=== PATIENT | male | born 1950 ===

== ENCOUNTER 2016-10-19 07:07 | Day surgery (SDC) | payer OTHER ==
[2016-10-18 08:11] VITALS: BMI 31.7
[2016-10-19 08:30] LABS: INR 1.1
[2016-10-19] MEDS ORDERED: Propofol 10 mg/ml Inj (20 ML) ONE (09:22)
[2016-10-19] MEDS ORDERED: Lactated Ringer's 1,000 ML IV ONE (09:25)
[2016-10-19] MEDS ORDERED: cefTRIAXone IV 1 gm in Dextros 50 ML IVPB ONE (09:26)
[2016-10-19] MEDS ORDERED: Lidocaine 2% Jelly (Uro-Jet) ONE (09:27)
[2016-10-19] MEDS ORDERED: Gentamicin 160 MG in Sodium Chloride 0.9% 100 ML IVPB ONE (09:30)
[2016-10-19] MEDS ORDERED: HYDROmorphone 0.5 mg/0.5 ml ISec IVP PRN (09:39)
--- NOTE | 2016-10-19 10:31 | OP ---
PROCEDURE DATE: 10/19/2016 PREOPERATIVE DIAGNOSIS: Elevated prostate-specific antigen of 30.1. POSTOPERATIVE DIAGNOSIS: Elevated prostate-specific antigen of 30.1. PROCEDURE: Transrectal ultrasound diagnostic, transrectal ultrasound guidance, and prostatic biopsy. SURGEON: Saad Cole MD. OPERATIVE DICTATION: The patient was told, and his daughter who was with him in the preoperative are a, who has interpreted that he needs to take it easy for 2 days after the procedure, he needs to be s ure he has a followup appointment within 1 week, and in the event of postoperative fever or chills, t o call my office immediately, and if there is no immediate response, to go right to the Emergency [facility]. The patient was brought to the operating room. One gram of Rocephin and 160 mg of gentamicin were gi harris as antibiotics intravenously. He was prepped and draped in the usual fashion. The rectum was fi rst cleansed with Betadine. We now introduced the transducer of the ultrasound machine. Multiple ar eas of calcification were seen. Total prostatic volume was 39.9 cm3. We now turned our attention towards prostatic biopsies. The prostate was divided into 6 sextants, an d 2 biopsies per sextant were obtained and sent to pathology. We then maintained pressure for 5 kelsey junie afterwards with the transducer to promote hemostasis. Upon removal, there was no significant ble eding noted. The patient tolerated the procedure well. Saad Cole MD cc: 66 TT: 10/19/2016 10:30:30 jn
[2016-10-19 16:17] VITALS: RESP 18; O2SAT 98
[2016-10-19 16:18] VITALS: BP 130/78; PULSE 68; TEMP 97.4
== END 2016-10-19 11:30 | disposition home or self-care (01) ==
LOC: C.SDS 07:07
PROVIDERS: ATTEND Urology
DX: R97.20 Elevated prostate specific antigen [PSA] (principal)
CPT/HCPCS: 36415; 55700; 85610; 85730; 88305; 88342; J0696; J1580; J7120